=== PATIENT | male | born 1975 | race Hispanic/Latino ===

== ENCOUNTER → 2018-04-10 09:51 | Outpatient (CLI) | payer OTHER, MEDICAID, SELFPAY ==
--- NOTE | 2018-04-10 10:00 | DI.RAD.S_ITS ---
PROCEDURE: XR FINGER RT MIN 2V INDICATIONS: old glass laceration injury 2 months ago TECHNIQUE: AP hand, 2 views of the right third finger(s) acquired. COMPARISON: None. FINDINGS: Bones: No fractures or dislocations. No suspicious bony lesions. Soft tissues: No unexpected radiopaque foreign bodies. IMPRESSION: No radiographic abnormalities. Dictated by: Janis Azevedo M.D. on 04/10/2018 at 15:36 Approved by: Janis Azevedo M.D. on 04/10/2018 at 15:37
== END ==
PROVIDERS: Visit Provider Physician Assistant
DX: M25.441 Effusion, right hand (principal)
CPT/HCPCS: 73140

== ENCOUNTER 2021-10-21 13:16 | Emergency (ER) | payer OTHER, MEDICAID, SELFPAY ==
[2021-10-21 13:21] VITALS: BP 132/82; PULSE 66; RESP 14; TEMP 36.2; O2SAT 99; BMI 24.3
--- NOTE | 2021-10-21 13:25 | DI.RAD.S_ITS ---
PROCEDURE: XR SHOULDER LT MIN 2V INDICATIONS: clicking in shoulder TECHNIQUE: 3 views of the shoulder were acquired. COMPARISON: None. FINDINGS: Bones: No definite fractures. No dislocations. The distal clavicle appears superior subluxed in relation to the acromion. No suspicious bony lesions. Visualized ribs appear intact. Soft tissues: No suspicious soft tissue calcifications. IMPRESSION: The distal clavicle is superior displaced in relation to the acromion. This could be due to subluxation or prior traumatic injury. Consider MRI for further evaluation. Dictated by: Shamar Jeff M.D. on 10/21/2021 at 13:48 Approved by: Shamar Jeff M.D. on 10/21/2021 at 13:51
--- NOTE | 2021-10-21 15:21 | ED.UPPEXIN ---
HPI - Extremity Injury (Upper) <ROYAL Medina - Last Filed: 10/21/21 15:52> General Chief Complaint: Extremity Injury, Upper Stated Complaint: lt. 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 Denies any new trauma or new injury. He reports that 15 years ago he had a separation of his left clavicle and has had pain from this in the past. He denies taking any medication today, denies any numbness or tingling or any sensation changes in his fingertips, denies any chronic neck pain, denies any elbow or wrist pain. He denies any rash, denies any swelling, skin changes, significant pain or other. He reports that it is not painful unless it clicks and pops with movement. Patient reports that he is right-handed. Related Data Previous Rx's Medication Instructions Recorded diclofenac sodium 1 % topical gel 2 g topical QID PRN pain #100 grams 10/21/21 lidocaine 5 % topical patch 1 patch topical DAILY #15 ea 10/21/21 (Lidoderm) meloxicam 15 mg tablet 15 mg PO DAILY PRN pain #14 tabs 10/21/21 Allergies Allergy/AdvReac Type Severity Reaction Status Date / Time No Known Drug Allergies Allergy Verified 10/21/21 13:23 Review of Systems <ROYAL Medina - Last Filed: 10/21/21 15:52> Review of Systems Narrative: General: denies fever, chills or trauma Head/Neck: denies headache, neck pain Eyes: denies visual changes, eye pain MSK: denies new joint pain, muscle weakness or swelling, endorses heavy activity over the last few days and left shoulder pain with a remote left shoulder injury Skin: denies rash, itching or wound Neuro: denies numbness, tingling, dizziness Patient History <ROYAL Medina - Last Filed: 10/21/21 15:52> Social History Smoking Status: Current every day smoker Smoking Status: Current every day smoker alcohol intake frequency: holidays/special occasions only Substance Use Type: does not use Exam <ROYAL Medina - Last Filed: 10/21/21 15:52> Narrative Exam Narrative: Independently reviewed vitals signs and nursing notes. General: cooperative, comfortable, in no acute distress, well groomed Head:symmetrical facial expressions Neck: supple with full range of motion Eyes: equal round and reactive, EOMI, conjunctiva normal MSK: moves all extremities, neurovascularly intact, no weakness, normal tone, radial pulses 2+, full range of motion without deficit, range of motion causes clicking sound of left shoulder, no strength deficit. Patient has brisk cap refill in his fingertips. Skin: brisk capillary refill, no rash, no erythema Neuro: normal speech and cognition, A&O x3 Psych: mental status is grossly normal, congruent mood, normal affect, pleasant and cooperative Initial Vital Signs Initial Vital Signs: Vital Signs Temperature 97.2 F L 10/21/21 13:21 Pulse Rate 66 10/21/21 13:21 Respiratory Rate 14 10/21/21 13:21 Blood Pressure 132/82 10/21/21 13:21 Pulse Oximetry 99 10/21/21 13:21 Oxygen Delivery Method 10/21/21 13:21 <Nicole Puente DO - Last Filed: 10/22/21 18:44> Initial Vital Signs Initial Vital Signs: Vital Signs Temperature 97.2 F L 10/21/21 13:21 Pulse Rate 66 10/21/21 13:21 Respiratory Rate 14 10/21/21 13:21 Blood Pressure 132/82 10/21/21 13:21 Pulse Oximetry 99 10/21/21 13:21 Oxygen Delivery Method 10/21/21 13:21 Course <ROYAL Medina - Last Filed: 10/21/21 15:52> Orders Ordered: Discontinued Medications Ketorolac Tromethamine (Ketorolac 30 Mg/Ml Vial) 15 mg IM NOW ONE Stop: 10/21/21 15:14 Last Admin: 10/21/21 15:30 Dose: 15 mg Documented By: NR Lidocaine (Lidocaine Patch 1 Each Adh..Patch) 1 each TOP NOW ONE Stop: 10/21/21 15:14 Last Admin: 10/21/21 15:30 Dose: 1 each Documented By: NR Vital Signs Vital signs: Vital Signs - 8 hr 10/21/21 13:21 Temperature 97.2 F L Pulse Rate 66 Respiratory Rate 14 Blood Pressure 132/82 Pulse Oximetry 99 Oxygen Delivery Method Room Air <Nicole Puente DO - Last Filed: 10/22/21 18:44> Orders Ordered: Discontinued Medications Ketorolac Tromethamine (Ketorolac 30 Mg/Ml Vial) 15 mg IM NOW ONE Stop: 10/21/21 15:14 Last Admin: 10/21/21 15:30 Dose: 15 mg Documented By: NR Lidocaine (Lidocaine Patch 1 Each Adh..Patch) 1 each TOP NOW ONE Stop: 10/21/21 15:14 Last Admin: 10/21/21 15:30 Dose: 1 each Documented By: NR Vital Signs Vital signs: Vital Signs - 8 hr 10/21/21 13:21 Temperature 97.2 F L Pulse Rate 66 Respiratory Rate 14 Blood Pressure 132/82 Pulse Oximetry 99 Oxygen Delivery Method Room Air MDM - Extremity Injury (Upper) <CLEO MedinaP - Last Filed: 10/21/21 15:52> Imaging Data Extremity x-ray #1: Radiologist's Impression: PROCEDURE:? XR SHOULDER LT MIN 2V ? INDICATIONS:? clicking in shoulder ? TECHNIQUE:? 3 views of the shoulder were acquired.? ? COMPARISON:? None. ? FINDINGS:? ? Bones:? No definite fractures.? No dislocations.? The distal clavicle appears superior subluxed in relation to the acromion.? No suspicious bony lesions.? Visualized ribs appear intact.? ? Soft tissues:? No suspicious soft tissue calcifications.? ? IMPRESSION:? The distal clavicle is superior displaced in relation to the acromion.? This could be due to subluxation or prior traumatic injury. ? Consider MRI for further evaluation. ? ? Dictated by: Shamar Jeff M.D. on 10/21/2021 at 13:48 ? ? Approved by: Shamar Jeff M.D. on 10/21/2021 at 13:51 ? [facility] Narrative Medical decision making narrative: This is a 46-year-old male who presents to the emergency department complaining of clicking in his left shoulder which has been worse since he has been doing an increased amount of physical labor over the last two weeks. Patient has a remote distal clavicle injury, his left shoulder x-ray shows no acute fractures, no dislocations, it shows his remote injury including his distal clavicle superiorly subluxed in relation to his acromion. Patient has full range of motion but the clicking is present in his left shoulder. Encouraged him to ice, decrease overuse, try lidocaine patches, NSAIDs, and see if this improves over the next week. Was given 15 mg of IM Toradol in the emergency department with a lidocaine patch. He reports that this is helpful for his pain, he was prescribed meloxicam 15 mg x 14 tabs and diclofenac topical gel with lidocaine patches. This is most likely a chronic injury, could be tendinitis, could be rotator cuff pathology but less likely as his pain and tenderness around the anterior aspect. Does not have any radiculopathy, denies any chronic neck pain, sensation changes, weakness, or rash. Denies any history of cardiac disease, heart problems, or any medical conditions. Patient is appropriate and amenable to discharge home. Vital signs are stable on repeat examination is unremarkable. Patient has been informed of results. Patient has been given strict return to ER precautions for any new or worsening symptoms. Patient understands to follow up closely with outpatient providers as instructed. Patient understands plan and agrees to discharge home. All questions and concerns answered at this time. Discharge Plan Departure Patient Disposition: Home Clinical Impression: Shoulder clicking Instructions: Shoulder Tendinopathy, DI for Shoulder Pain Activity Restrictions/Additional Instructions: *You have been diagnosed with likely inflammation of your left shoulder from your frequent use of it. Please ice, you can take meloxicam daily which is a strong anti-inflammatory starting tomorrow, do not combine with ibuprofen, you may add Tylenol to this, and try lidocaine patches, Voltaren gel, topical CBD, whatever helps your pain. Avoid overuse and follow-up with orthopedics if this is not get any better or if it gets any worse. Your x-ray does not show any fracture. *What to do: *Please continue to take your regular medications as directed. [x ] New medication prescriptions sent to your pharmacy: [ [facility]] [ ] New medication written as a paper prescription [ ] No new medications given *Please follow up with your primary care provider in 2-3 days, call for an appointment. Let them know you were seen in the Emergency Department and that we asked that you be seen for follow-up. We will electronically transmit a record of today's note if your PCP is in our system *If you do not have a primary care provider please contact [phone] to establish care with one of the [facility] primary care providers. *Return to Emergency Department if you should have any new, worsening or concerning symptoms, such as [fever greater than 101F, chills, worsening pain, persistent vomiting or other bothersome symptoms] Prescriptions: New diclofenac sodium 1 % gel 2 g topical QID PRN (Reason: pain) Qty: 100 0RF Rx Instructions: apply to single elbow, wrist or hand; for hand includes palm/fingers/back of hand lidocaine [Lidoderm] 5 % adhesive patch,medicated 1 patch topical DAILY Qty: 15 0RF Rx Instructions: leave on most painful area for up to 12 hrs meloxicam 15 mg tablet 15 mg PO DAILY PRN (Reason: pain) Qty: 14 0RF Referrals: [facility] [Provider Group] Visit Report Forms: Patient Portal/API <Nicole Puente, - Last Filed: 10/22/21 18:44> Cosign ED Attending Cobyature Attestation: I was immediately available in the department for consultation. Documentation has been reviewed.
[2021-10-21] MEDS: KETOROLAC 30 MG/ML VIAL 15 MG IM (15:30)
[2021-10-21] MEDS: LIDOCAINE PATCH 1 EACH ADH..PATCH TOP (15:30)
[2021-10-21 15:44] VITALS: BP 139/80; PULSE 61; RESP 18; O2SAT 100
--- NOTE | 2021-10-21 15:44 | PC.NURSE ---
assessment done by provider.
== END 2021-10-21 15:45 | disposition home or self-care (01) ==
PROVIDERS: Emergency Provider Nurse Practitioner Critical Care Medicine
DX: R29.898 Other symptoms and signs involving the musculoskeletal system (principal)
CPT/HCPCS: 73030; 96372; 99283; J1885

== ENCOUNTER → 2022-04-19 13:36 | Outpatient (CLI) | payer OTHER, MEDICAID, SELFPAY ==
--- NOTE | 2022-04-19 13:37 | DI.RAD.S_ITS ---
PROCEDURE: XR RIBS RT MIN 3V W CXR 1V INDICATIONS: status fall rib cage pain TECHNIQUE: 3 views of the right ribs were acquired, along with a single view chest. COMPARISON: None. FINDINGS: Surgical changes and devices: None. Bones and chest wall: No fractures or dislocations. No suspicious bony lesions. Overlying soft tissues appear unremarkable. Lungs and pleura: No pleural effusions or pneumothorax. Lungs appear clear. Mediastinum: Mediastinal contours appear normal. Heart size is normal. IMPRESSION: No visualized acute fracture or dislocation. However, if clinical concern and/or pain persist, short interval imaging followup in 7-10 days is recommended, as occult injury cannot be definitively excluded. Dictated by: Martha Haddad M.D. on 04/19/2022 at 14:41 Approved by: Martha Haddad M.D. on 04/19/2022 at 14:42
== END ==
PROVIDERS: Referring Provider Physician Assistant Medical; Visit Provider Physician Assistant Medical
DX: R07.81 Pleurodynia (principal)
CPT/HCPCS: 71101